=== PATIENT | female | born 1980 | race Caucasian/White ===

== ENCOUNTER 2017-06-13 05:31 | Emergency (ER) | payer OTHER ==
[~2017-06-13] VITALS: Ht 167.6 cm; Wt 84.8 kg
[~2017-06-13 05:31] MED LIST: Colace PO; Motrin PO; Percocet 5/325,Endoc PO; Senokot S,Pericolace PO
[2017-06-13] MEDS ORDERED: ZOFRAN4 MG PO (06:28)
[2017-06-13] MEDS ORDERED: CLONIDINE HCL0.1 MG PO (06:28)
[2017-06-13] MEDS ORDERED: TRAZODONE HCL50 MG PO (06:28)
[2017-06-13 06:34] VITALS: BP 142/78
== END 2017-06-13 06:35 | disposition home or self-care (01) ==
LOC: EME → EDBD 05:31 → EME 05:31
DX: F11.23 Opioid dependence with withdrawal (principal)
CPT/HCPCS: 99281; 99284